=== PATIENT | female | born 1975 | race Caucasian/White ===

== ENCOUNTER 2016-10-24 17:39 | Emergency (ER) | payer SELFPAY ==
[~2016-10-24] VITALS: Ht 162.6 cm; Wt 91.2 kg
[2016-10-24 17:43] VITALS: Ht 162.6 cm; Wt 91.2 kg
--- NOTE | 2016-10-24 19:01 | EMERGENCY ROOM VISIT NOTE ---
History First contact with patient: 18:46 Chief Complaint: LEG PAIN,LEG INJURY Stated Complaint: R LEG SWOLLEN AND NUMB, BACK AND HIP HURT History of Present Illness The patient is a 40 year old female who presents to the Emergency Room with complaints of knee, hip, and back pain as well as leg numbness and swelling. 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 Two days ago, she got up from the seated position and noticed she felt weak and dizzy. She reports she got up and felt her right knee give way, and since then her back, hip, and knee have been hurting intermittently. She reports she also noticed both her legs were more swollen than usual and had an odd numb sensation to the upper thigh. Nothing made her pain better or worse. She denies a rash. She has a history of lumbar back surgery so was concerned something could have gone wrong with it. Review of Systems See HPI for pertinent positives & negatives. A total of 10 systems reviewed and were otherwise negative. Past Medical/Surgical History Medical Problems: (1) Bronchitis Surgical Problems: (1) History of back surgery Family History Diabetes mellitus FH: cancer Kidney disease Kidney stones Social History Smoking Status: Current Every Day Smoker Alcohol Use: occasionally Drug Use: none Housing Status: lives with family Occupation Status: employed Current/Historical Medications Scheduled PRN Xorwbaz-Vgsjfvqnaycnc-Otfitgyz (Excedrin Migraine), 2 TABS PO Q12 PRN for Migraine Allergies Coded Allergies: Nickel (Verified Allergy, Unknown, RASH, 03/21/16) Physical Exam Vital Signs Date Time Temp Pulse Resp B/P Pulse Ox O2 Delivery O2 Flow Rate FiO2 10/24/16 20:21 37.2 78 18 144/87 97 10/24/16 20:00 78 18 144/87 97 Room Air 10/24/16 17:43 37.2 75 18 146/88 98 Room Air Physical Exam GENERAL: Awake, alert, well-appearing, in no acute distress HENT: Normocephalic, atraumatic. Oropharynx unremarkable. EYES: Normal conjunctiva. Sclera non-icteric. NECK: Supple. No nuchal rigidity. FROM. No JVD. RESPIRATORY: Clear to auscultation. CARDIAC: Regular rate, normal rhythm. Extremities warm and well perfused. Pulses equal. ABDOMEN: Soft, non-distended. No tenderness to palpation. No rebound or guarding. No masses. RECTAL: Deferred. MUSCULOSKELETAL: Chest examination reveals no tenderness. There is no CVA tenderness to palpation. No joint edema. Tenderness to palpation of L5. Tenderness to R hip with deep palpation. Normal ROM of knee and hip. Crepitus to knees bilaterally. LOWER EXTREMITIES: Calves are equal size bilaterally and non-tender. Bilateral + 1 edema. No discoloration. NEURO: Normal sensorium. No sensory or motor deficits noted. SKIN: No rash or jaundice noted. Medical Decision & Procedures Procedure RIGHT PELVIS/UNILATERAL HIP 2-3VIEWS CLINICAL HISTORY: Right leg and hip pain. COMPARISON: None FINDINGS: The sacroiliac joints and symphysis pubis are intact. No acute fracture is identified within the pelvis or the hips. A density projecting over the left femoral neck is of doubtful significance. Hip joint spaces are preserved. There is no evidence for a vascular necrosis. There is minimal osteophytosis of the right hip. IMPRESSION: 1. No acute fracture within the pelvis or hips. 2. Preserved right hip joint space with minimal osteophytosis. Electronically signed by: Yosef Barber M.D. 10/24/2016 7:37 PM RIGHT KNEE 1 OR 2 VIEWS ROUTINE CLINICAL HISTORY: Right knee pain, swelling and clicking. COMPARISON: None FINDINGS: Positioning on lateral view is suboptimal. Alignment of the right knee is anatomic. There is no acute fracture or joint effusion. Joint spaces are preserved. IMPRESSION: No acute fracture or joint effusion of the right knee. RIGHT LOWER EXTREMITY VENOUS DOPPLER CLINICAL HISTORY: Right leg swelling and numbness. COMPARISON STUDY: No previous studies for comparison. TECHNIQUE: Sonography of the deep venous system of the right lower extremity was performed. Compression and augmentation were evaluated. FINDINGS: The right common femoral, superficial femoral and popliteal veins were compressible. Augmentation was normal. Flow was shown within the deep calf vessels. IMPRESSION: No evidence of deep venous thrombus within the right lower extremity. L-SPINE MIN 4 VIEWS ROUTINE CLINICAL HISTORY: Right leg pain and numbness. Previous back surgery. COMPARISON: Lumbar spine radiographs April 09, 2016. FINDINGS: Note is made of an L1-L2 laminectomy. Alignment of the lumbar spine is anatomic. Vertebral body heights are maintained. No fracture or suspicious lesion is present. There is mild endplate osteophytosis with minimal disc space narrowing. There is moderate facet arthrosis. IMPRESSION: 1. No acute lumbar spine fracture or subluxation. 2. L1-L2 laminectomy. 3. Mild multilevel degenerative disc disease and facet arthrosis. ED Course 6:40: I evaluated the patient in room C3. A complete history and physical were performed. 6:53: I ordered a Doppler US of the R leg and Xrays of the knee hip and Lumbar spine. 8:21: Her scans were negative. The patient was discharged home and advised to follow up with her PCP. Medical Decision 40 yo F with previous lumbar surgery who presents with back, hip, and knee pain. Differential includes arthritis, radiculopathy, DVT, fracture, or patellofemoral pain syndrome. She had an US to rule out DVT and Xrays of the knee, hip, and lumbar spine to rule out a bony pathology. These were all normal. Her pain was likely due to degenerative disease with a component of patellofemoral pain. She was discharged home in good condition and advised to follow up with her PCP. Departure Information Dispostion Home / Self-Care Condition GOOD Referrals No Doctor, Assigned (PCP) Patient Instructions My [facility] Resident Tracking Resident Involvement: Resident Care Provided Care Provided: Adult ED
--- NOTE | 2016-10-24 19:36 | DIAGNOSTIC IMAGING REPORT ---
RIGHT KNEE 1 OR 2 VIEWS ROUTINE CLINICAL HISTORY: Right knee pain, swelling and clicking. COMPARISON: None FINDINGS: Positioning on lateral view is suboptimal. Alignment of the right knee is anatomic. There is no acute fracture or joint effusion. Joint spaces are preserved. IMPRESSION: No acute fracture or joint effusion of the right knee. Electronically signed by: Yosef Barber M.D. 10/24/2016 7:34 PM Dictated Date/Time: 10/24/2016 7:33 PM
--- NOTE | 2016-10-24 19:37 | DIAGNOSTIC IMAGING REPORT ---
L-SPINE MIN 4 VIEWS ROUTINE CLINICAL HISTORY: Right leg pain and numbness. Previous back surgery. COMPARISON: Lumbar spine radiographs April 09, 2016. FINDINGS: Note is made of an L1-L2 laminectomy. Alignment of the lumbar spine is anatomic. Vertebral body heights are maintained. No fracture or suspicious lesion is present. There is mild endplate osteophytosis with minimal disc space narrowing. There is moderate facet arthrosis. IMPRESSION: 1. No acute lumbar spine fracture or subluxation. 2. L1-L2 laminectomy. 3. Mild multilevel degenerative disc disease and facet arthrosis. Electronically signed by: Yosef Barber M.D. 10/24/2016 7:35 PM Dictated Date/Time: 10/24/2016 7:34 PM
--- NOTE | 2016-10-24 19:38 | DIAGNOSTIC IMAGING REPORT ---
RIGHT PELVIS/UNILATERAL HIP 2-3VIEWS CLINICAL HISTORY: Right leg and hip pain. COMPARISON: None FINDINGS: The sacroiliac joints and symphysis pubis are intact. No acute fracture is identified within the pelvis or the hips. A density projecting over the left femoral neck is of doubtful significance. Hip joint spaces are preserved. There is no evidence for a vascular necrosis. There is minimal osteophytosis of the right hip. IMPRESSION: 1. No acute fracture within the pelvis or hips. 2. Preserved right hip joint space with minimal osteophytosis. Electronically signed by: Yosef Barber M.D. 10/24/2016 7:37 PM Dictated Date/Time: 10/24/2016 7:35 PM
--- NOTE | 2016-10-24 19:43 | DIAGNOSTIC IMAGING REPORT ---
RIGHT LOWER EXTREMITY VENOUS DOPPLER CLINICAL HISTORY: Right leg swelling and numbness. COMPARISON STUDY: No previous studies for comparison. TECHNIQUE: Sonography of the deep venous system of the right lower extremity was performed. Compression and augmentation were evaluated. FINDINGS: The right common femoral, superficial femoral and popliteal veins were compressible. Augmentation was normal. Flow was shown within the deep calf vessels. IMPRESSION: No evidence of deep venous thrombus within the right lower extremity. Electronically signed by: Yosef Barber M.D. 10/24/2016 7:42 PM Dictated Date/Time: 10/24/2016 7:42 PM
[2016-10-24 20:21] VITALS: BP 144/87; PULSE 78; TEMP 37.2; O2SAT 97
--- NOTE | 2016-10-24 22:47 | EMERGENCY ROOM VISIT NOTE ---
History Report prepared by Donna: Francis Baca Under the Supervision of: Dr. Salvatore Bhatia D.O. First contact with patient: 18:46 Chief Complaint: LEG PAIN,LEG INJURY Stated Complaint: R LEG SWOLLEN AND NUMB, BACK AND HIP HURT History of Present Illness The patient is a 40 year old female who presents to the Emergency Room with complaints of persistent right leg pain for the past two days. The patient notes that the pain is localized to her right knee and hip.The patient also notes numbness of the leg and increased lower right leg swelling. Her discomfort is rated 5/10 in severity. She also has some pain to the right lower back. The pain started suddenly after standing up from a seated position two days ago. The patient has a history of lumbar surgery. She is a smoker. She is not on control or hormone therapy. The patient drives two [address] ways to [employer] for work almost every day. Source of History: patient Onset: two days ago Position: leg (right) Symptom Intensity: 5/10 Timing: other (persisent) Associated Symptoms: + numbness Review of Systems See HPI for pertinent positives & negatives. A total of 10 systems reviewed and were otherwise negative. Past Medical & Surgical Medical Problems: (1) Bronchitis Surgical Problems: (1) History of back surgery Family History Diabetes mellitus FH: cancer Kidney disease Kidney stones Social History Smoking Status: Current Every Day Smoker Alcohol Use: occasionally Drug Use: none Housing Status: lives with family Occupation Status: employed Current/Historical Medications Scheduled PRN Dzgmrla-Gwfxmdzdcbjhj-Tbpbsubn (Excedrin Migraine), 2 TABS PO Q12 PRN for Migraine Allergies Coded Allergies: Nickel (Verified Allergy, Unknown, RASH, 03/21/16) Physical Exam Vital Signs Date Time Temp Pulse Resp B/P Pulse Ox O2 Delivery O2 Flow Rate FiO2 10/24/16 20:21 37.2 78 18 144/87 97 10/24/16 20:00 78 18 144/87 97 Room Air 10/24/16 17:43 37.2 75 18 146/88 98 Room Air Physical Exam CONSTITUTIONAL/VITAL SIGNS: Reviewed / noted above. GENERAL: Non-toxic in appearance. INTEGUMENTARY: Warm, dry, and [place]. HEAD: Normocephalic. EYES: without scleral icterus or trauma. ENT/OROPHARYNX: clear and moist. LYMPHADENOPATHY/NECK: Is supple without lymphadenopathy or meningismus. RESPIRATORY: Lungs clear and equal. CARDIOVASCULAR: Regular rate and rhythm. GI/ABDOMEN: Soft and nontender. No organomegaly or pulsatile mass. No rebound or guarding. Normal bowel sounds. EXTREMITIES: Warm and well perfused. BACK: No CVA tenderness. NEUROLOGICAL: Intact without focal deficits. PSYCHIATRIC: normal affect. MUSCULOSKELETAL: Normally developed with good muscle tone. Medical Decision & Procedures ER Provider Diagnostic Interpretation: X ray results and stated below per my interpretation and radiologist interpretation. Other radiology results and stated below per my review and radiologist interpretation: RIGHT PELVIS/UNILATERAL HIP 2-3VIEWS CLINICAL HISTORY: Right leg and hip pain. COMPARISON: None FINDINGS: The sacroiliac joints and symphysis pubis are intact. No acute fracture is identified within the pelvis or the hips. A density projecting over the left femoral neck is of doubtful significance. Hip joint spaces are preserved. There is no evidence for a vascular necrosis. There is minimal osteophytosis of the right hip. IMPRESSION: 1. No acute fracture within the pelvis or hips. 2. Preserved right hip joint space with minimal osteophytosis. Electronically signed by: Yosef Barber M.D. 10/24/2016 7:37 PM Dictated Date/Time: 10/24/2016 7:35 PM RIGHT KNEE 1 OR 2 VIEWS ROUTINE CLINICAL HISTORY: Right knee pain, swelling and clicking. COMPARISON: None FINDINGS: Positioning on lateral view is suboptimal. Alignment of the right knee is anatomic. There is no acute fracture or joint effusion. Joint spaces are preserved. IMPRESSION: No acute fracture or joint effusion of the right knee. Electronically signed by: Yosef Barber M.D. 10/24/2016 7:34 PM Dictated Date/Time: 10/24/2016 7:33 PM RIGHT LOWER EXTREMITY VENOUS DOPPLER CLINICAL HISTORY: Right leg swelling and numbness. COMPARISON STUDY: No previous studies for comparison. TECHNIQUE: Sonography of the deep venous system of the right lower extremity was performed. Compression and augmentation were evaluated. FINDINGS: The right common femoral, superficial femoral and popliteal veins were compressible. Augmentation was normal. Flow was shown within the deep calf vessels. IMPRESSION: No evidence of deep venous thrombus within the right lower extremity. Electronically signed by: Yosef Barber M.D. 10/24/2016 7:42 PM Dictated Date/Time: 10/24/2016 7:42 PM L-SPINE MIN 4 VIEWS ROUTINE CLINICAL HISTORY: Right leg pain and numbness. Previous back surgery. COMPARISON: Lumbar spine radiographs April 09, 2016. FINDINGS: Note is made of an L1-L2 laminectomy. Alignment of the lumbar spine is anatomic. Vertebral body heights are maintained. No fracture or suspicious lesion is present. There is mild endplate osteophytosis with minimal disc space narrowing. There is moderate facet arthrosis. IMPRESSION: 1. No acute lumbar spine fracture or subluxation. 2. L1-L2 laminectomy. 3. Mild multilevel degenerative disc disease and facet arthrosis. Electronically signed by: Yosef Barber M.D. 10/24/2016 7:35 PM Dictated Date/Time: 10/24/2016 7:34 PM ED Course 1845: The patient was evaluated by my resident. 1955: Previous medical records were reviewed. The patient was evaluated in room C3. A complete history and physical examination was performed. I explained the findings to her. 2014: The patient is ready for discharge. Medical Decision Differential diagnosis: Etiologies such as DVT, musculoskeletal, infection, joint effusion, trauma, lymphedema, idiopathic, CHF, as well as others were entertained.. This is a patient who presents with the above complaint. She primarily complains of pain in the right leg and hip area. She states that started when she bent over and got back up a couple of days ago. Further details listed above and in the resident's note. Vital signs are normal. Her physical exam did not reveal any abnormalities. She has no discomfort with palpation the leg. X-ray of the right hip, right knee and lumbar spine did not show any acute abnormality. Ultrasound of the leg did not show DVT. The patient was told results the test. She is felt to be stable for discharge and outpatient follow-up. Impression Primary Impression: Leg pain, right Scribe Attestation The scribe's documentation has been prepared under my direction and personally reviewed by me in its entirety. I confirm that the note above accurately reflects all work, treatment, procedures, and medical decision making performed by me. Departure Information Dispostion Home / Self-Care Referrals No Doctor, Assigned (PCP) Forms HOME CARE DOCUMENTATION FORM, IMPORTANT VISIT INFORMATION Patient Instructions My [facility] Additional Instructions Follow up with your PCP regarding the pain. A deep vein thrombosis was ruled out. If you notice worsening pain or swelling, please take Ibuprofen 600mg as needed with food. If you notice any shortness of breath or chest pain please return to the ED.
== END 2016-10-24 20:21 | disposition home or self-care (01) ==
LOC: MERGE 17:41 → C.EDB 17:41 → C.EDC 20:21
DX: M79.604 Pain in right leg (principal); F17.200 Nicotine dependence, unspecified, uncomplicated; Z98.890 Other specified postprocedural states; Z91.09 Other allergy status, other than to drugs and biological substances; Z83.3 Family history of diabetes mellitus; Z80.9 Family history of malignant neoplasm, unspecified; Z84.1 Family history of disorders of kidney and ureter

== ENCOUNTER 2016-11-18 18:09 | Emergency (ER) | payer SELFPAY ==
[~2016-11-18] VITALS: Ht 162.6 cm; Wt 91.0 kg
[2016-11-18 18:19] VITALS: TEMP 37; Ht 162.6 cm; Wt 91.0 kg
[2016-11-18] MEDS ORDERED: OXYCODONE HCL IR 5 MG TAB (IMMEDIATE RELEASE) PO STA (19:05)
[2016-11-18] MEDS ORDERED: ASPI-390 PO (19:44)
--- NOTE | 2016-11-18 20:24 | DIAGNOSTIC IMAGING REPORT ---
MRI OF THE LUMBAR SPINE WITHOUT CONTRAST CLINICAL HISTORY: Low back pain. Right leg numbness. History of ependymoma resection. COMPARISON STUDY: MRI of the lumbar spine November 11, 2008 and lumbar spine radiographs October 24, 2016. TECHNIQUE: Utilizing a 1.5 Zakia magnet and dedicated coil, multiplanar, multiecho imaging of the lumbar spine was performed without IV contrast. FINDINGS: For purposes of numbering on this exam, the L5-S1 disc space is assigned to axial image 23 of 26. Alignment of the lumbar spine is anatomic. Vertebral body heights are maintained. There is no marrow replacement. There is a Schmorl's node along the superior endplate of L4. There are findings consistent with L1-L2 laminectomies. No intracanalicular masses identified on this unenhanced exam. The conus terminates at the mid L1 level. Paravertebral soft tissues are unremarkable. L1-2: The central canal and neural foramen are patent. L2-3: There is mild disc bulge. The central canal and neural foramen are patent. L3-4: The central canal and neural foramen are patent. L4-5: The central canal and neural foramen are patent. L5-S1: The central canal and neural foramen are patent. IMPRESSION: 1. Mild multilevel degenerative disc disease and facet arthrosis of the lumbar spine. Mild disc bulges with no significant central canal or neural foraminal stenosis. 2. Stable postoperative findings following L1-L2 laminectomies. No residual intracanalicular mass on unenhanced exam. Electronically signed by: Yosef Barber M.D. 11/18/2016 8:22 PM Dictated Date/Time: 11/18/2016 8:12 PM
[2016-11-18] MEDS ORDERED: PRED20TA PO (20:40)
[2016-11-18] MEDS ORDERED: OXYC1TAB3 PO (20:40)
--- NOTE | 2016-11-18 20:41 | EMERGENCY ROOM VISIT NOTE ---
History First contact with patient: 18:35 Chief Complaint: PAIN (GENERALIZED) Stated Complaint: PAIN IN BACK, NECK AND LEGS History of Present Illness The patient is a 41 year old female who presents to the Emergency Room with complaints of pain in the low back with radiation down the right leg. The patient reports that she was seen here this month for similar pain. She reports the pain is in the right lower back with radiation into the right leg. She reports the pain in the leg makes it very difficult to walk. She does report some numbness in the anterior thigh of the right leg. The patient had x- rays when she was seen here previously and told to follow-up with her primary care provider she did [facility] and does have an appointment with them this week. Reports she has been taking ibuprofen at home with little relief of her pain. The patient does note that she had a surgery performed in 2007 to remove a mass from her spine. She states that her symptoms now feels similar to the symptoms she experienced prior to this diagnosis. She denies any weakness of the legs. She denies any incontinence, urinary symptoms or urinary retention. She denies any abdominal pain, nausea, vomiting or fevers. Review of Systems A complete 10-point Review of Systems was discussed with the patient, with pertinent positives and negatives listed in the History of Present Illness. All remaining Review of Systems questions can be considered negative unless otherwise specified. Past Medical/Surgical History Medical Problems: (1) Bronchitis Surgical Problems: (1) History of back surgery Family History Diabetes mellitus FH: cancer Kidney disease Kidney stones Social History Smoking Status: Current Every Day Smoker Alcohol Use: occasionally Drug Use: none Housing Status: lives with family Occupation Status: employed Current/Historical Medications Scheduled Prednisone (Prednisone), 0 PO DAILY Scheduled PRN Kpnzsod-Mxwfgqbdvabqi-Nctndbga (Excedrin Migraine), 2 TABS PO Q12 PRN for Migraine Oxycodone Ir (Roxicodone Ir), 1-2 TAB PO Q4H PRN for Pain Allergies Coded Allergies: Nickel (Verified Allergy, Unknown, RASH, 03/21/16) Physical Exam Vital Signs Date Time Temp Pulse Resp B/P Pulse Ox O2 Delivery O2 Flow Rate FiO2 11/18/16 20:49 60 18 103/76 95 Room Air 11/18/16 20:18 67 20 127/81 94 Room Air 11/18/16 18:19 37.0 67 16 120/82 97 Room Air Physical Exam VITALS: Vitals are noted on the nurse's note and reviewed by myself. No abnormalities noted. GENERAL: This is a 41-year-old female, in no acute distress, nondiaphoretic, well-developed well-nourished. SKIN: The skin was without rashes, erythema, edema, or bruising. HEAD: Normocephalic atraumatic. EYES: Pupils equal round and reactive to light and accommodation. The Extraocular movements intact. NECK: Supple without nuchal rigidity. No cervical spine tenderness. No paraspinous muscle tenderness. No lymphadenopathy. HEART: Regular rate and rhythm without murmurs gallops or rubs. LUNGS: Clear to auscultation bilaterally without wheezes, rales or rhonchi. ABDOMEN: Positive bowel sounds x 4. Soft, nontender, without masses or organomegaly. MUSCULOSKELETAL: No muscle atrophy, erythema, or edema noted of the back. There is no tenderness over the lumbar spinous processes. There is tenderness over the right lumbar paraspinous muscles. No palpable muscle spasms. Full range of motion of the spine. Negative straight leg raise test. NEURO: Patient was alert and oriented to person place and time. Normal sensation to light and sharp touch. Deep tendon reflexes 2+ in the lower extremities. Dorsalis pedis pulse 2+ bilaterally. Heel and toe walking is normal. Medical Decision & Procedures ER Provider Diagnostic Interpretation: MRI OF THE LUMBAR SPINE WITHOUT CONTRAST CLINICAL HISTORY: Low back pain. Right leg numbness. History of ependymoma resection. COMPARISON STUDY: MRI of the lumbar spine November 11, 2008 and lumbar spine radiographs October 24, 2016. TECHNIQUE: Utilizing a 1.5 Zakia magnet and dedicated coil, multiplanar, multiecho imaging of the lumbar spine was performed without IV contrast. FINDINGS: For purposes of numbering on this exam, the L5-S1 disc space is assigned to axial image 23 of 26. Alignment of the lumbar spine is anatomic. Vertebral body heights are maintained. There is no marrow replacement. There is a Schmorl's node along the superior endplate of L4. There are findings consistent with L1-L2 laminectomies. No intracanalicular masses identified on this unenhanced exam. The conus terminates at the mid L1 level. Paravertebral soft tissues are unremarkable. L1-2: The central canal and neural foramen are patent. L2-3: There is mild disc bulge. The central canal and neural foramen are patent. L3-4: The central canal and neural foramen are patent. L4-5: The central canal and neural foramen are patent. L5-S1: The central canal and neural foramen are patent. IMPRESSION: 1. Mild multilevel degenerative disc disease and facet arthrosis of the lumbar spine. Mild disc bulges with no significant central canal or neural foraminal stenosis. 2. Stable postoperative findings following L1-L2 laminectomies. No residual intracanalicular mass on unenhanced exam. Medications Administered Medications (Trade) Dose Ordered Sig/Selina Route Start Time Stop Time Status Last Admin Dose Admin Oxycodone HCl (Roxicodone Immediate Rel Tab) 5 mg NOW STAT PO 11/18/16 19:05 11/18/16 19:07 DC 11/18/16 19:13 5 MG Medical Decision Differential diagnosis includes musculoskeletal pain, discitis, epidural abscess , cauda equina syndrome, cord compression, herniated disc, malignancy, among others. The patient was evaluated as above. As the patient does have a complicated history and given her new complaint of right-sided numbness, I did choose to order an MRI of the lumbar spine. MRI was obtained and read by radiology with mild degenerative disc disease, but no central canal narrowing and no masses. The patient was given 5 mg OxyIR for pain. She did report some relief of the pain with this treatment. I will place the patient on a steroid taper. She was instructed to keep her follow-up appointment with her primary care provider this week. She will return for any new/concerning symptoms. She verbalized understanding of my assessment and treatment plan and was discharged home in good condition. The patient's case was reviewed with Dr. Gonzalez, ED attending physician, who agreed with my assessment and treatment plan. Impression Primary Impression: Lumbar radiculopathy Departure Information Dispostion Home / Self-Care Condition GOOD Prescriptions Oxycodone Ir (Roxicodone Ir) 5 Mg Tab 1-2 TAB PO Q4H Y for Pain, #15 TAB For Initial Treatment Prov: Margarita Stubbs PA-C 11/18/16 Prednisone (Prednisone) 20 Mg Tab 0 PO DAILY, #18 TAB 3 DAILY FOR 3 DAYS, THEN 2 DAILY FOR 3 DAYS, THEN 1 DAILY FOR 3 DAYS. Prov: Margarita Stubbs PA-C 11/18/16 [facility]errals [facility] Patient Instructions My [facility] Additional Instructions You have been treated in the Emergency Department for Back Pain. You have received pain medicine in the emergency department which impairs your ability to operate a vehicle. It is illegal for you to drive after receiving these medicines. You have been prescribed OxyIR to be used for pain control. This is a narcotic medication. You cannot drive or consume alcohol while on this medicine. This medicine should only be used for pain that cannot be controlled with over-the- counter pain medicines. Prednisone as prescribed. For pain control, you can use the following rbqv-sgg-euuihut medicines (if >12 yo): - Regular strength (325mg/tab) Tylenol (acetaminophen) 2 tabs every 4-6 hours as needed. Do not exceed 12 tablets in a 24 hour period. Avoid taking more than 4 grams (4000 mg) of Tylenol per day. This includes any other sources of acetaminophen you may take on a regular basis. - Regular strength (200 mg/tab) Advil (ibuprofen) 1-2 tabs every 4-6 hours as needed. Do not exceed a dose of 3200 mg per day. If this is an acute injury, ice can be applied to the area of pain for the first 3 days to help decrease pain and inflammation. After the first 3 days, a heating pad can be used over the area for continued soothing relief. Follow-up with your primary care provider as scheduled. Return to the Emergency Department if your current symptoms worsen despite treatment course outlined above, or if you develop any of the following symptoms : intractable pain despite aforementioned treatment course, loss of control of your bowel or bladder, numbness or tingling in your groin, or development of a fever.
[2016-11-18 20:49] VITALS: BP 103/76; PULSE 60; O2SAT 95
== END 2016-11-18 20:54 | disposition home or self-care (01) ==
LOC: MERGE 18:10 → C.EDB 18:10 → C.EDA 20:54
DX: M54.16 Radiculopathy, lumbar region (principal); F17.200 Nicotine dependence, unspecified, uncomplicated; Z98.890 Other specified postprocedural states; Z91.09 Other allergy status, other than to drugs and biological substances; Z83.3 Family history of diabetes mellitus; Z80.9 Family history of malignant neoplasm, unspecified; Z84.1 Family history of disorders of kidney and ureter

== ENCOUNTER 2017-02-01 19:17 | Emergency (ER) | payer SELFPAY ==
[~2017-02-01] VITALS: Ht 162.6 cm; Wt 91.6 kg
[~2017-02-01 19:17] MED LIST: OXYC1TAB3 PO; PRED20TA PO
[2017-02-01 19:23] VITALS: BP 167/98; PULSE 63; TEMP 36.7; O2SAT 98; Ht 162.6 cm; Wt 91.6 kg
--- NOTE | 2017-02-01 20:25 | DIAGNOSTIC IMAGING REPORT ---
RIGHT ANKLE MIN 3 VIEWS ROUTINE CLINICAL HISTORY: Right ankle pain status post trauma COMPARISON: None. DISCUSSION: No fractures or dislocations are visualized. The ankle mortise appears intact on these nonstress views. There is calcaneal spurring. IMPRESSION: No fractures or dislocations identified. Electronically signed by: Reggie Funk M.D. 02/01/2017 8:23 PM Dictated Date/Time: 02/01/2017 8:22 PM
--- NOTE | 2017-02-01 20:25 | DIAGNOSTIC IMAGING REPORT ---
RIGHT FOOT MIN 3 VIEWS ROUTINE CLINICAL HISTORY: Right foot pain status post trauma COMPARISON: None. DISCUSSION: No fractures or dislocations are visualized. There is calcaneal spurring. IMPRESSION: No fractures identified. Electronically signed by: Reggie Funk M.D. 02/01/2017 8:24 PM Dictated Date/Time: 02/01/2017 8:23 PM
--- NOTE | 2017-02-01 20:52 | EMERGENCY ROOM VISIT NOTE ---
ED Visit Note First contact with patient: 19:31 CHIEF COMPLAINT: Foot pain HISTORY OF PRESENT ILLNESS: This 41-year-old female patient presents to the emergency department complaining of swelling and pain in the right states she tripped while going down 2 steps, twisted her foot and fell on the ground. There is minimal pain in the foot at rest and worse with weight bearing. The patient also complains of a sore throat and coughing up phlegm since yesterday, states she was exposed to a coworker who was also sick recently. Patient states , "I caught off work and I need a note any way, so I figured I just get everything checked out while I was here." The patient rates the foot pain as throbbing and 5/10. She rates the throat pain as burning and 5/10. The patient has had some relief of the pain after taking Motrin. The patient is able to walk. No numbness or weakness. No ankle pain. There are no lacerations of the foot. The patient is able to move all of their toes and their ankle without pain. Patient states multiple previous ankle sprains but denies previous fracture to this foot. The sore throat has come on gradually. No fever or chills. No rash. Denies any posterior neck pain or stiffness. No difficulty breathing. Symptoms came on gradually. There has been no chest pain , no abdominal pain, no nausea or vomiting. REVIEW OF SYSTEMS: GENERAL: A 6 system review of systems was completed with positives and pertinent negatives in the HPI. ALLERGIES: See chart MEDICATIONS: See chart PMH: See chart SOCIAL HISTORY: See chart PHYSICAL EXAM: Vital Signs: Reviewed Nurse's notes, vital signs stable. GENERAL : Pleasant and cooperative, in no acute distress, but appears in pain, well- developed, well-nourished. MUSCULOSKELATAL: There is no visual deformity of the right foot. There is no erythema and no ecchymosis. There is no warmth. There is tenderness and swelling over the distal fourth and fifth metatarsal of the right foot. No proximal fifth metatarsal tenderness to palpation noted. There is no tenderness over the lateral or medial malleolus. No tenderness of the tib /fib. The range of motion of the right foot is not limited secondary to pain. There is no tenderness over the plantar fascia. The skin is intact and there are no lacerations or puncture wounds. Dorsalis pedis pulse 2+. Capillary refill less than 2 seconds. THROAT: The pharynx not inflamed and or swollen. No exudates are seen on the tonsils. The oropharyngeal airway is patent. Uvula is midline and no abscess is seen. SKIN: Clear and dry, no eruptions. No cyanosis, no petechiae. EMERGENCY DEPARTMENT COURSE: I examined the patient. Differential diagnosis includes foot contusion, sprain/strain, fracture, dislocation, ankle injury, viral pharyngitis, strep, URI. An X-ray of the right ankle and foot was reviewed by myself and radiologist and reveals no acute injury. Patient has no pain in the right ankle with range of motion or palpation. Only tender in the right foot. Rapid strep test was done, which is negative. Culture sent to lab. Patient was provided with crutches and instructed on their use. She was instructed to follow closely with her PCP or orthopedics. The patient was discharged home in good condition. Current/Historical Medications No Active Prescriptions or Reported Meds Allergies Coded Allergies: Nickel (Verified Allergy, Unknown, Unknown, 02/01/17) Vital Signs Date Time Temp Pulse Resp B/P (MAP) Pulse Ox O2 Delivery O2 Flow Rate FiO2 02/01/17 19:23 36.7 63 18 167/98 98 Room Air Departure Information Impression Primary Impression: Contusion of foot Additional Impression: Acute viral pharyngitis Dispostion Home / Self-Care Condition GOOD Prescriptions No Active Prescriptions or Reported Meds Referrals No Doctor, Assigned (PCP) Patient Instructions ED Contusion Foot, ED Pharyngitis Viral, [facility] Additional Instructions Ice and elevation for 24-48 hrs. Ibuprofen, 600mg and Tylenol 1000 mg every 6 hours for the pain. Avoid weight bearing and use crutches until the pain subsides and you can walk without a limp. Follow up with family doctor or orthopedic surgeon if symptoms persist in 5-7 days. The results of your rapid strep screen were found to be negative. You will be contacted in 48-72 hrs with the results of your pending strep culture. For pain and fever control, you can use the following avgd-mqh-alffbim medicines (if >12 yo): - Regular strength (325mg/tab) Tylenol (acetaminophen) 2 tabs every 4-6 hours as needed. Do not exceed 10 tablets in a 24 hour period. Avoid taking more than 3 grams (3000 mg) of Tylenol per day. This includes any other sources of acetaminophen you may take on a regular basis. - Regular strength (200 mg/tab) Advil (ibuprofen) 1-2 tabs every 4-6 hours as needed. Do not exceed a dose of 3200 mg per day. - For best results, alternate dosing of Tylenol and Advil. In addition to your prescribed medications, you can also use the following home remedies: - Warm salt-water gargles 3 times per day can soothe your throat and help to fight infection. - Warm tea with honey can soothe your throat. - Throat lozenges and sprays Return to the emergency department if your symptoms persist or worsen over the next 2-3 days despite treatment course outlined above. Return to the emergency department if you develop the following symptoms of: inability to swallow solids , liquids, or drool; excessive wheezing or inability to catch your breath; or intractable fever or pain. Follow up with your primary care provider in 2-3 days from today's emergency department visit. Work Instructions Return To Work: 2 days Lifting Limitations: none Problem Qualifiers Primary Impression: Contusion of foot Encounter type: initial encounter Laterality: right Qualified Codes: S90.31XA - Contusion of right foot, initial encounter
== END 2017-02-01 21:44 | disposition home or self-care (01) ==
LOC: C.EDB 19:19 → C.EDD 21:44
DX: S90.31XA Contusion of right foot, initial encounter (principal); J02.8 Acute pharyngitis due to other specified organisms; W10.9XXA Fall (on) (from) unspecified stairs and steps, initial encounter; X50.1XXA Overexertion from prolonged static or awkward postures, initial encounter

== ENCOUNTER 2017-06-13 16:37 | Emergency (ER) | payer SELFPAY ==
[2017-06-13 16:41] VITALS: TEMP 37.1; Ht 162.6 cm
[2017-06-13] MEDS ORDERED: HYDROCODONE/ACETAMOPHEN 5/325MG TAB PO ONE (17:15)
--- NOTE | 2017-06-13 17:25 | DIAGNOSTIC IMAGING REPORT ---
LEFT FOOT 3 VIEWS CLINICAL HISTORY: Left foot pain. Fall. FINDINGS: 3 views of left foot are obtained. No prior studies are available for comparison at the time of dictation. The skeletal structures are well mineralized. No fracture is seen. The joint spaces of the foot are maintained. Soft tissue swelling is suggested in the forefoot. There is a large plantar calcaneal enthesophyte. IMPRESSION: Soft tissue swelling is suggested in the forefoot. No fracture is identified. Electronically signed by: Demetri Amaro M.D. 06/13/2017 5:23 PM Dictated Date/Time: 06/13/2017 5:21 PM
[2017-06-13 17:53] VITALS: BP 140/91; PULSE 68; O2SAT 95
[2017-06-13] MEDS ORDERED: ASPI-390 PO (19:44)
--- NOTE | 2017-06-14 10:11 | EMERGENCY ROOM VISIT NOTE ---
ED Visit Note First contact with patient: 16:57 Chief Complaint: I hurt my left foot when I fell. History of Present Illness: Ms. Perez is a 41-year-old white female who is brought into the ED via wheelchair complaining of left mid foot pain. Patient reports approximately one hour ago she was trying to disentangle her dog from around the tree. She reports that she walked around the tree she walked into a hole and tripped and fell. She reports when she fell she felt and heard a snapping sensation in the left foot. She reports since that time she has been having moderate to severe midfoot pain on the left and she has not been able to ambulate because of her discomfort. Currently she complains of severe sharp and throbbing pain throughout the midfoot of the left foot. She rates her discomfort 10/10. Her pain is nonradiating. Her pain worsens with flexion and extension of the toes, palpation and weightbearing. She has not identified any alleviating factors related to the pain. She has not taken any medication for pain prior to arrival at the hospital. She denies striking her head or face at the time of the fall or having a loss of consciousness and since the fall she has not had any signs of head injury. Additionally she denies left hip pain, left knee pain, left lower leg pain, left ankle pain, left foot weakness/numbness/tingling. Additionally she denies any previous significant injuries or surgeries to the left foot. Review of Systems: As noted above in history of present illness. Past Medical History: Migraine headaches, bronchitis, pneumonia, unspecified skin disorder, status post tonsillectomy, unspecified back surgery and removal of cervical cancer. Current Medications: Excedrin Migraine. Allergies to Medications: Patient denies. Social History: Patient is currently employed; she feels safe in her home environment; she admits to tobacco and alcohol use. Physical Examination: Vital Signs: Date Time Temp Pulse Resp B/P (MAP) Pulse Ox O2 Delivery O2 Flow Rate FiO2 06/13/17 17:53 68 16 140/91 95 06/13/17 16:41 37.1 70 16 141/90 96 Room Air GENERAL: 41-year-old female in mild distress due to pain, nontoxic-appearing, afebrile and hemodynamically stable. NEUROLOGICAL: Awake, alert and oriented to person, place and time. Answering questions appropriately and following commands. Normal gait. Good hand eye coordination. No focal motor sensory deficits. SKIN: Warm, dry and pink. No soft tissue trauma noted. LEFT LOWER EXTREMITY: No gross bony deformity. No tenderness in the knee, lower leg or ankle. No tenderness over the gastrocnemius or heel. Patient did not want me to touch her foot because of her discomfort and places her pain over the intermediate and lateral cuneiform tarsal and the second, third and fourth metacarpal. There was mild swelling in this area. The toes were warm and pink and capillary refill was brisk. She was able to wiggle her toes. ED Course: Patient is assessed as noted above. Patient's medication list was reviewed. Patient was given ice and one [place] tablet eye mouth for pain. Left Foot X-Rays: Were read by myself and the radiologist showing no acute fractures or dislocations. Patient was placed in a postop shoe and on nonweightbearing crutches. Patient was educated about today's findings and instructed on her treatment plan ; she verbalizes understanding and agreement with this plan. Clinical Impression: Left foot pain. Disposition: Patient discharged home in stable condition; prior to departure she was reassessed and subjectively reported she was feeling better and rated her discomfort 8/10. Plan: Comfort measures were discussed with the patient including alternating ibuprofen and acetaminophen, ice, elevation, postop shoe and nonweightbearing crutches. Patient was encouraged to follow-up with orthopedics if no better in 7-10 days. Patient was encouraged return ED for worsening/uncontrolled pain, foot weakness/ numbness/tingling, uncontrolled swelling or any new/concerning symptoms.
== END 2017-06-13 17:55 | disposition home or self-care (01) ==
LOC: C.EDB 16:38 → C.EDD 17:55
DX: M79.672 Pain in left foot (principal); W18.42XA Slipping, tripping and stumbling without falling due to stepping into hole or opening, initial encounter; Y93.89 Activity, other specified; Z87.01 Personal history of pneumonia (recurrent); Z85.41 Personal history of malignant neoplasm of cervix uteri; Z72.0 Tobacco use

== ENCOUNTER 2017-06-19 12:50 | Emergency (ER) | payer SELFPAY ==
[~2017-06-19] VITALS: Ht 162.6 cm; Wt 86.0 kg
[~2017-06-19 12:50] MED LIST changes: +ASPI-390 PO; -OXYC1TAB3 PO; -PRED20TA PO
[2017-06-19 12:58] VITALS: TEMP 36.9; Ht 162.6 cm; Wt 86.0 kg
[2017-06-19] MEDS ORDERED: ACET-1311 PO (13:11)
[2017-06-19] MEDS ORDERED: IBUP-1050 PO (13:11)
[2017-06-19] MEDS ORDERED: HYDROCODONE/ACETAMOPHEN 5/325MG TAB PO ONE (13:45)
--- NOTE | 2017-06-19 14:38 | DIAGNOSTIC IMAGING REPORT ---
CT L LOWER EXTREMITY WITHOUT CT DOSE: 232.21 mGy.cm CLINICAL HISTORY: Left foot pain and swelling. Negative conventional radiograph. TECHNIQUE: Helical images were acquired in the transverse plane. Sagittal and coronal reformatted images were acquired. A dose lowering technique was utilized adhering to the principles of ALARA. COMPARISON STUDY: Conventional radiographic study dated 06/13/2017 FINDINGS: There is a mildly comminuted fracture involving the medial cuneiform. There is a nondisplaced chip fracture involving the base of the second metatarsal. There is a nondisplaced chip fracture involving the base of the third metatarsal. There is no subluxation. No phalangeal fractures are visualized. No calcaneal navicular talus are or cuboid fractures are visualized. IMPRESSION: 1. Mildly comminuted fracture involving the medial cuneiform 2. Nondisplaced fracture involving the base the second metatarsal 3. Nondisplaced fracture involving the base the third metatarsal 4. No subluxations identified. Electronically signed by: Reggie Funk M.D. 06/19/2017 2:36 PM Dictated Date/Time: 06/19/2017 2:28 PM
[2017-06-19] MEDS ORDERED: HYDR-5688 PO (14:47)
[2017-06-19 15:17] VITALS: BP 153/91; PULSE 60; O2SAT 96
--- NOTE | 2017-06-19 20:55 | EMERGENCY ROOM VISIT NOTE ---
ED Visit Note First contact with patient: 13:35 Chief Complaint: Still having left foot pain and swelling and now it's black and blue. History of Present Illness: Ms. Perez is a 41-year-old white female who ambulates into the ED complaining of left foot pain and swelling. Historically patient reports she injured her foot on March 03 and was seen in this emergency department and diagnosed with a contusion. I had seen this patient on June 13 and she still reported that she was having pain and swelling. Both of these visits she received x-rays which shows no acute fractures or dislocations. Patient presents today with worsening pain and worsening swelling in the foot and now with ecchymosis in her toes. Currently she is complaining of a throbbing and a sharp pain when she ambulates in the area of the second, third and fourth MTP joints on the left foot. She rates her discomfort 9/10. Her pain is nonradiating. Her pain worsens with palpation and ambulation. She has not identified any alleviating factors related to the pain. She reports she's been alternating ibuprofen and Tylenol without relief of her discomfort. Associated with her pain is swelling and now ecchymosis. She denies lower leg pain, ankle pain, other toe pain, foot weakness/numbness/ tingling, recent new direct or repetitive trauma. Review of Systems: As noted above in history of present illness. Past Medical History: As previously noted, unspecified skin problem, bronchitis , pneumonia, status post tonsillectomy, cervical collar, unspecified back surgery. Current Medications: Patient denies. Allergies to Medications: Patient denies. Social History: Patient is currently employed; she lives the daughter and feels safe in her home environment; she admits to tobacco and alcohol use. Physical Examination: Vital Signs: Date Time Temp Pulse Resp B/P (MAP) Pulse Ox O2 Delivery O2 Flow Rate FiO2 06/19/17 15:17 60 16 153/91 96 06/19/17 12:58 36.9 64 20 168/99 97 Room Air GENERAL: 41-year-old female in mild distress due to pain, nontoxic-appearing, afebrile and hemodynamically stable. NEUROLOGICAL: Awake, alert and oriented to person, place and time. Answering questions appropriately and following commands. SKIN: Warm, dry and pink. Left Foot: Ecchymosis presenting over the proximal phalanx of the third and fourth toes and in the webspace between the third and fourth toes. LEFT LOWER EXTREMITY: No gross bony deformity. No shortening or malrotation. No tenderness in the knee, lower leg or ankle. Moderate tenderness over the cuneiform tarsals, the second through third metatarsals and the second through third MCP joints. I do not appreciate any bony deformity or crepitus. She does have full range of motion of these joints. She doesn't bruising and ecchymosis as noted above. The toes are warm and pink and capillary refill is brisk. She is able to distinguish light sensations through all dermatomes of the foot. ED Course: Patient is assessed as noted above. Patient's medication list was reviewed. Patient was given one [place] tablet 5/325 mg by mouth for pain. Left Foot CT: Was reviewed by myself and read by the radiologist showing a mildly comminuted fracture involving the medial cuneiform tarsal and nondisplaced fractures involving the base of the second and third metatarsals. Patient was placed in an Ortho-Glass posterior ankle splint; patient had crutches from previous visit. Patient was educated about today's findings and instructed on her treatment plan ; she verbalizes understanding and agreement with this plan. Clinical Impression: Left foot fractures. Disposition: Patient discharged home in stable condition accompanied by her daughter; prior to departure she was reassessed and subjectively reported she was feeling much better. Plan: Comfort measures were discussed with the patient including rest, ice, splint and crutch use and a sliding pain medication scale of ibuprofen, acetaminophen and [place]. She was given appropriate narcotic precautions and her name was checked on the state database and no red flags were noted. Patient was encouraged to follow-up with her dairy specialist for definitive care and treatment. Patient is encouraged return ED for worsening/uncontrolled pain, worsening/ uncontrolled swelling, foot weakness/numbness/tingling or any new/concerning symptoms.
== END 2017-06-19 15:17 | disposition home or self-care (01) ==
LOC: C.EDB 12:50 → C.EDD 15:17
DX: S92.325A Nondisplaced fracture of second metatarsal bone, left foot, initial encounter for closed fracture (principal); S92.335A Nondisplaced fracture of third metatarsal bone, left foot, initial encounter for closed fracture; X58.XXXA Exposure to other specified factors, initial encounter; F17.200 Nicotine dependence, unspecified, uncomplicated; Z98.890 Other specified postprocedural states; Z87.2 Personal history of diseases of the skin and subcutaneous tissue

== ENCOUNTER 2017-11-14 20:20 | Emergency (ER) | payer OTHER ==
[~2017-11-14] VITALS: Ht 162.6 cm; Wt 84.0 kg
[~2017-11-14 20:20] MED LIST changes: +ACET-1311 PO; -ASPI-390 PO; +HYDR-5688 PO; +IBUP-1050 PO
[2017-11-14 20:23] VITALS: TEMP 36.5
[2017-11-14] MEDS ORDERED: SODIUM CHLORIDE 0.9% 1000ML 1,000 ML IV STA (21:31)
[2017-11-14] MEDS ORDERED: ONDANSETRON INJ 2 MG/ML 2 ML VIAL IV STA (21:31)
[2017-11-14] MEDS ORDERED: KETOROLAC TROMETHAMINE 30 MG/ML VIAL IV STA (21:31)
[2017-11-14 21:47] VITALS: O2SAT 99; Ht 162.6 cm; Wt 84.0 kg
[2017-11-14 22:11] LABS: BASO % 0.3 %; BASO ABS # 0.03 K/uL (0-0.2); EOS % 2.1 %; HEMATOCRIT 40.2 % (37-47); HEMOGLOBIN 13.4 g/dL (12.0-16.0); IG# 0.03 K/uL (0.00-0.02); LYMPH % 20.6 %; LYMPH ABS # 1.93 K/uL (1.2-3.4); MEAN CELL VOLUME 91.4 fL (80-100); MEAN CORPUSCULAR HEMOGLOBIN 30.5 pg (25-34); MEAN CORPUSCULAR HGB CONC 33.3 g/dl (32-36); MEAN PLATELET VOLUME 10.6 fL (7.4-10.4); MONO % 6.7 %; MONO ABS # 0.63 K/uL (0.11-0.59); NEUT ABS # 6.55 K/uL (1.4-6.5); PLATELET COUNT 289 K/uL (130-400); RED CELL DISTRIBUTION WIDTH CV 13.5 % (11.5-14.5); RED CELL DISTRIBUTION WIDTH SD 45.4 fL (36.4-46.3); WHITE BLOOD COUNT 9.37 K/uL (4.8-10.8)
[2017-11-14 22:42] LABS: ALBUMIN 3.2 gm/dl (3.4-5.0); ALT/SGPT 22 U/L (12-78); AST/SGOT 17 U/L (15-37); BLOOD UREA NITROGEN 15 mg/dl (7-18); CALCIUM 8.6 mg/dl (8.5-10.1); CARBON DIOXIDE 27 mmol/L (21-32); CREATININE 0.91 mg/dl (0.60-1.20); GLUCOSE 110 mg/dl (70-99); POTASSIUM 3.6 mmol/L (3.5-5.1); SODIUM 141 mmol/L (136-145)
[2017-11-14 22:51] LABS: ALKALINE PHOSPHATASE 66 U/L (45-117)
[2017-11-15 00:45] VITALS: BP 155/89; PULSE 69; O2SAT 96
--- NOTE | 2017-11-15 05:49 | EMERGENCY ROOM VISIT NOTE ---
History First contact with patient: 21:27 Chief Complaint: ABDOMINAL PAIN Stated Complaint: ABDOMINAL PAIN,FAINT, VOMITING Nursing Triage Summary: Pt reports 45 mins ago she started with sharp abdominal pain throughtout, nausea, vomiting. Pt states, "When I just walked in here I felt like I was going to pass out." History of Present Illness The patient is a 42 year old female who presents to the Emergency Room with complaints of upper abdominal pain for the past few hours described as aching, ranging in severity 6 out of 10. Nothing makes it better or worse. It does not radiate. Patient states she had fried chicken and fried rice for dinner. Symptoms started shortly after this. Patient denies chest pain, dyspnea, fever , chills, cough, congestion, back pain, flank pain, urinary symptoms. Patient states because the pain she felt lightheaded. No history of similar symptoms in the past. Review of Systems An 10 system review of systems was completed with positives and pertinent negatives listed in the HPI. Past Medical/Surgical History Medical Problems: (1) Bronchitis Surgical Problems: (1) History of back surgery Family History Diabetes mellitus FH: cancer Kidney disease Kidney stones Social History Smoking Status: Current Every Day Smoker Alcohol Use: occasionally Drug Use: none Housing Status: lives with family Occupation Status: employed Current/Historical Medications Scheduled Acetaminophen (Tylenol), 650 MG PO DIRECTED Ibuprofen (Advil), 600 MG PO DIRECTED Physical Exam Vital Signs Date Time Temp Pulse Resp B/P (MAP) Pulse Ox O2 Delivery O2 Flow Rate FiO2 11/15/17 00:45 69 14 155/89 96 11/14/17 23:44 52 15 143/91 97 Room Air 11/14/17 22:08 60 11/14/17 22:05 51 16 144/84 96 Room Air 57 168/92 59 141/100 11/14/17 21:47 99 Room Air 11/14/17 20:23 36.5 75 18 99 Room Air Physical Exam VITALS: Vitals are noted on the nurse's note and reviewed by myself. Vital signs hypertensive. GENERAL: Pleasant female, in no acute distress, nondiaphoretic, well-developed well-nourished. SKIN: The skin was without rashes, erythema, edema, or bruising. There is no tenting of the skin. Capillary reflex less than 2 seconds. HEAD: Normocephalic atraumatic. EARS: External auditory canals clear, tympanic membranes pearly isaac without erythema or effusion bilaterally. EYES: Pupils equal round and reactive to light and accommodation. Conjunctivae without injection, sclerae without icterus. Extraocular movements intact. NOSE: Patent, turbinates without inflammation or discharge. MOUTH: Mucous membranes moist. Pharynx without erythema or exudate. Uvula midline. Airway patent. Tongue does not deviate. NECK: Supple without nuchal rigidity. No lymphadenopathy. No thyromegaly. Cervical spine is nontender. No JVD. HEART: Regular rate and rhythm without murmurs gallops or rubs. LUNGS: Clear to auscultation bilaterally without wheezes, rales or rhonchi. No retractions or accessory muscle use. ABDOMEN: Positive bowel sounds x 4. Normal tympanic percussion. Soft, tender to palpation right upper quadrant, without masses or organomegaly. No guarding or rebound tenderness. No CVA tenderness MUSCULOSKELETAL: No muscle atrophy, erythema, or edema noted. NEURO: Patient was alert and oriented to person place and time. Normal sensation to light and sharp touch. No focal neurological deficits. Medical Decision & Procedures Laboratory Results 11/14/17 21:55 Red Blood Count 4.40, Mean Corpuscular Volume 91.4, Mean Corpuscular Hemoglobin 30.5, Mean Corpuscular Hemoglobin Concent 33.3, Mean Platelet Volume 10.6, Neutrophils (%) (Auto) 70.0, Lymphocytes (%) (Auto) 20.6, Monocytes (%) (Auto) 6.7, Eosinophils (%) (Auto) 2.1, Basophils (%) (Auto) 0.3, Neutrophils # (Auto) 6.55, Lymphocytes # (Auto) 1.93, Monocytes # (Auto) 0.63, Eosinophils # (Auto) 0.20, Basophils # (Auto) 0.03 11/14/17 21:55 Test 11/14/17 21:55 11/14/17 23:25 11/14/17 23:29 White Blood Count 9.37 K/uL (4.8-10.8) Red Blood Count 4.40 M/uL (4.2-5.4) Hemoglobin 13.4 g/dL (12.0-16.0) Hematocrit 40.2 % (37-47) Mean Corpuscular Volume 91.4 fL (80-100) Mean Corpuscular Hemoglobin 30.5 pg (25-34) Mean Corpuscular Hemoglobin Concent 33.3 g/dl (32-36) Platelet Count 289 K/uL (130-400) Mean Platelet Volume 10.6 fL (7.4-10.4) Neutrophils (%) (Auto) 70.0 % Lymphocytes (%) (Auto) 20.6 % Monocytes (%) (Auto) 6.7 % Eosinophils (%) (Auto) 2.1 % Basophils (%) (Auto) 0.3 % Neutrophils # (Auto) 6.55 K/uL (1.4-6.5) Lymphocytes # (Auto) 1.93 K/uL (1.2-3.4) Monocytes # (Auto) 0.63 K/uL (0.11-0.59) Eosinophils # (Auto) 0.20 K/uL (0-0.5) Basophils # (Auto) 0.03 K/uL (0-0.2) RDW Standard Deviation 45.4 fL (36.4-46.3) RDW Coefficient of Variation 13.5 % (11.5-14.5) Immature Granulocyte % (Auto) 0.3 % Immature Granulocyte # (Auto) 0.03 K/uL (0.00-0.02) Anion Gap 5.0 mmol/L (3-11) Est Creatinine Clear Calc Drug Dose 82.7 ml/min Estimated GFR () 88.9 Estimated GFR (Non- 76.7 BUN/Creatinine Ratio 16.9 (10-20) Calcium Level 8.6 mg/dl (8.5-10.1) Total Bilirubin 0.2 mg/dl (0.2-1) Direct Bilirubin < 0.1 mg/dl (0-0.2) Aspartate Amino Transf (AST/SGOT) 17 U/L (15-37) Alanine Aminotransferase (ALT/SGPT) 22 U/L (12-78) Alkaline Phosphatase 66 U/L (45-117) Total Protein 6.0 gm/dl (6.4-8.2) Albumin 3.2 gm/dl (3.4-5.0) Thyroid Stimulating Hormone (TSH) 1.600 uIu/ml (0.300-4.500) Human Chorionic Gonadotropin, Qual NEG (NEG) Urine Color YELLOW Urine Appearance CLEAR (CLEAR) Urine pH 7.0 (4.5-7.5) Urine Specific [place] 1.021 (1.000-1.030) Urine Protein NEG (NEG) Urine Glucose (UA) NEG (NEG) Urine Ketones TRACE (NEG) Urine Occult Blood NEG (NEG) Urine Nitrite NEG (NEG) Urine Bilirubin NEG (NEG) Urine Urobilinogen NEG (NEG) Urine Leukocyte Esterase SMALL (NEG) Urine WBC (Auto) 5-10 /hpf (0-5) Urine RBC (Auto) 0-4 /hpf (0-4) Urine Hyaline Casts (Auto) 0 /lpf (0-5) Urine Epithelial Cells (Auto) >30 /lpf (0-5) Urine Bacteria (Auto) 1+ (NEG) Urine Mucus PRESENT (NONE PRSENT) Urine Yeast (Auto) (NONE PRSENT) Troponin I < 0.015 ng/ml (0-0.045) Medications Administered Medications (Trade) Dose Ordered Sig/Selina Route Start Time Stop Time Status Last Admin Dose Admin Ondansetron HCl (Zofran Inj) 4 mg NOW STAT IV 11/14/17 21:31 11/14/17 21:32 DC 11/14/17 22:09 4 MG Sodium Chloride 1,000 ml @ 999 mls/hr Q1H1M STAT IV 11/14/17 21:31 11/14/17 22:31 DC 11/14/17 22:02 999 MLS/HR Ketorolac Tromethamine (Toradol Inj) 10 mg NOW STAT IV 11/14/17 21:31 11/14/17 21:32 DC 11/14/17 22:09 10 MG ED Course Prior records/ancillary studies reviewed. Triage Nursing notes reviewed. Additional history obtained from family The patient's history was concerning for abdominal pain. Differential diagnosis: Etiologies such as appendicitis, diverticulitis, PUD, biliary pathology, UTI, pancreatitis, obstruction, mesenteric ischemia, aortic pathology, infections, inflammatory bowel disease, renal colic, as well as others were entertained. Physical examination findings: As above. ER treatment provided: Toradol, Zofran On reassessment the patient felt better. Diagnostics interpreted by me: ECG: Normal sinus, normal intervals, no acute ST-T wave changes, rate 53. Impression sinus bradycardia interpreted by myself The labs revealed stable H&H. No leukocytosis Imaging studies: Ultrasound concerning for gallstone. No free fluid. Per radiology. Exam and history seem consistent with biliary colic. Patient's pain resolved. Patient did not have acute abdomen on exam. She was tolerating fluids. She felt much better. She requested to go. Patient was advised to low-fat diet to follow-up outpatient with surgery for further evaluation treatment for her gallbladder or here in the ER sooner for abdominal pain, fevers, vomiting, worsening signs or symptoms or as needed.By the evaluation outlined above emergent etiologies such as appendicitis, diverticulitis, PUD, UTI, pancreatitis , obstruction, mesenteric ischemia, aortic pathology, infections, inflammatory bowel disease, renal colic, as well as others were deemed relatively unlikely. The pt informed about the findings as listed above. All questions were answered and pleased with the treatment. Return instructions were outlined and the patient was discharged in stable condition. Case reviewed with my attending Referral: The patient was referred back to their primary care physician and surgery for follow-up in 2 to 3 days for a recheck of the current condition. The chart was completed utilizing [employer] Speech voice recognition software. Grammatical errors, random word insertions, pronoun errors, and incomplete sentences are an occassional consequence of this system due to software limitations, ambient noise, and hardware issues. Any formal questions or concerns about the content, text, or information contained within the body of this dictation should be directly addressed to the physician offset assistant press operator for clarification. Medical Decision As above Medication Reconcilliation Current Medication List: was personally reviewed by me Blood Pressure Screening Patient's blood pressure: Elevated blood pressure Blood pressure disposition: Elevated BP felt to be situational Impression Primary Impression: Biliary colic Departure Information Dispostion Home / Self-Care Condition GOOD Forms Call Back Authorization, HOME CARE DOCUMENTATION FORM, Work Instructions, Return To Work: 2 days IMPORTANT VISIT INFORMATION Patient Instructions My [facility], ED Gallstone W Biliary Colic Additional Instructions Avoid large meals. Avoid fatty and acidic foods. Rest and drink plenty of fluids as tolerated. Continue current medications. Avoid strenuous activities and anything that worsens your pain. Resume normal activities once your symptoms resolve. Return to the ER immediately for worsening or persistent abdominal pain, black or blood in your stools, vomiting, fevers, chest pains, difficulty breathing, worsening of your condition, or as needed. Follow up with your primary physician in 2-3 days for a recheck of your current condition and referral to general surgery for your gallbladder problem. Work Instructions Return To Work: 2 days
--- NOTE | 2017-11-15 07:12 | DIAGNOSTIC IMAGING REPORT ---
ABDOMINAL ULTRASOUND, RIGHT UPPER QUADRANT HISTORY: Right upper quadrant abdominal pain. Vomiting.. COMPARISON: None. FINDINGS: Pancreas: The pancreatic tail is obscured by overlying bowel gas. The remaining portions of the pancreas are within normal limits. Liver: Unremarkable. Gallbladder: A 2 cm gallstone. The gallbladder is slightly contracted. No gallbladder wall thickening. CBD: 5 mm. Right kidney: No hydronephrosis. IMPRESSION: Cholelithiasis. The gallbladder is contracted. No definite gallbladder wall thickening. Electronically signed by: Jerson Brandt M.D. 11/15/2017 7:11 AM Dictated Date/Time: 11/15/2017 7:10 AM
== END 2017-11-15 00:46 | disposition home or self-care (01) ==
LOC: C.EDB 20:22 → C.EDC 11-15 00:46
DX: K80.50 Calculus of bile duct without cholangitis or cholecystitis without obstruction (principal); R03.0 Elevated blood-pressure reading, without diagnosis of hypertension; F17.200 Nicotine dependence, unspecified, uncomplicated; Z83.3 Family history of diabetes mellitus; Z84.1 Family history of disorders of kidney and ureter

== ENCOUNTER 2017-11-28 11:35 | Day surgery (SDC) | payer OTHER ==
[2017-11-26 13:12] VITALS: BMI 32.0
[~2017-11-28] VITALS: Ht 162.6 cm; Wt 84.1 kg
[~2017-11-28 11:35] MED LIST changes: +CEFAZOLIN 2000MG IV PUSH 15 ML IV SCH; -HYDR-5688 PO; +LACTATED RINGER'S 1000ML 1,000 ML IV SCH
[2017-11-28] MEDS ORDERED: BUPIVACAINE/EPINEPHRINE 0.5% MPF 1:200,000 30 ML VIAL ONE (11:39)
[2017-11-28] MEDS ORDERED: DEXAMETHASONE SOD INJ 4 MG/ML VIAL ONE (11:54)
[2017-11-28] MEDS ORDERED: FENTANYL CITRATE INJ 50 MCG/1 ML 2 ML VIAL ONE ×2 (11:54→14:11)
[2017-11-28] MEDS ORDERED: PROPOFOL IV EMULSION 10 MG/ML 20 ML VIAL IV ONE (11:54)
[2017-11-28] MEDS ORDERED: MIDAZOLAM HCL 1 MG/ML 2ML VIAL ONE (11:54)
[2017-11-28] MEDS ORDERED: ONDANSETRON INJ 2 MG/ML 2 ML VIAL ONE (11:54)
[2017-11-28] MEDS ORDERED: NEOSTIGMINE METHYLSULFATE 5 MG/5 ML SYR ONE (11:54)
[2017-11-28] MEDS ORDERED: LIDOCAINE HCL 2% 2 ML VIAL (20MG/ML) ONE (11:54)
[2017-11-28] MEDS ORDERED: GLYCOPYRROLATE INJ 0.2 MG/ML VIAL ONE (11:54)
[2017-11-28 12:07] VITALS: BP 141/88; PULSE 62; TEMP 36.8; O2SAT 96; Ht 162.6 cm; Wt 84.1 kg
--- NOTE | 2017-11-28 12:49 | History & Physical Bridge Note ---
H&P Re-Evaluation Bridge Note: I have examined the patient, reviewed the History & Physical and in the interval since the performance of the History & Physical I have noted the following changes of clinical significance: No changes noted
[2017-11-28] MEDS ORDERED: ROCURONIUM BROMIDE 10 MG/ML 5 ML VIAL IV ONE (13:37)
[2017-11-28] MEDS ORDERED: KETOROLAC TROMETHAMINE 30 MG/ML VIAL ONE (13:37)
--- NOTE | 2017-11-28 13:45 | [facility] Post Operative Brief Note ---
Immediate Operative Summary Operative Date Nov 28, 2017. Pre-Operative Diagnosis Cholelithiasis Post-Operative Diagnosis Same Procedure(s) Performed Laparoscopic Cholecystectomy Surgeon Dr. Dean Cline Lining Stamper Surgeon(s) Dora Araiza PA-C Estimated Blood Loss 10mL Findings Consistent with Post-Op Diagnosis Specimens Permanent A. Gallbladder and contents Anesthesia Type General
--- NOTE | 2017-11-28 13:59 | [facility] Operative Report ---
Operative Report Operative Date Nov 28, 2017. Pre-Operative Diagnosis Cholelithiasis Post-Operative Diagnosis Same Procedure(s) Performed Laparoscopic Cholecystectomy Surgeon Dr. Dean Cline Furnace Feeder Surgeon(s) Dora Araiza PA-C Estimated Blood Loss 10mL Specimens Permanent A. Gallbladder and contents Anesthesia Type General Description of Procedure After informed consent was obtained the patient was taken to the operating room and placed in the supine position. After successful intubation the abdomen was sterilely prepped and draped in usual fashion. A periumbilical incision was made with an 11 blade scalpel and carried down through the soft tissue using electrocautery. The anterior rectus fascia was opened using electrocautery and 2 #0 Vicryl stay sutures were placed. The peritoneum was elevated with hemostats and incised under direct vision using Metzenbaum scissors. A finger sweep was performed and a 12 mm August trocar was placed. The abdomen was insufflated to 18 mmHg. The laparoscope was inserted and the abdomen was examined in 360. No gross abnormalities were identified. A subxiphoid 5 mm port and 2 right upper quadrant 5 mm ports were placed under direct vision. The patient was placed in a reverse Trendelenburg position and slightly airplaned to the left. The gallbladder was grasped and elevated superiorly and laterally. A [place] dissector was used to take down adhesions around the neck of the gallbladder. The cystic duct was identified and skeletonized. It was clipped twice proximally and once distally and transected using a laparoscopic scissor. In similar fashion the cystic artery was identified and skeletonized clipped and divided. The gallbladder was removed from the gallbladder fossa with electrocautery. It was placed into an Endo Catch bag. Thorough irrigation was performed. At the end of the procedure there was adequate hemostasis and no evidence of any bile leaks. A final look around the abdomen showed no other abnormalities. The gallbladder and trochars were all removed and the abdomen was desufflated. The fascia of the camera port was closed using 0 Vicryl in a [id number] fashion. All the wounds were irrigated and closed using 4-0 Monocryl. Marcaine was injected around them for postoperative analgesia and skin glue used as a dressing. The patient was awaken extubated and transferred to recovery in stable condition. My physician's assistant public defender was present throughout the entire case. He helped with prepping the patient. With exposure for trocar placement. He retracted the gallbladder throughout the case. He also assisted with wound closure and dressing placement. I attest to the content of the Intraoperative Record and any orders documented therein. Any exceptions are noted below.
[2017-11-28] MEDS ORDERED: ONDANSETRON INJ 2 MG/ML 2 ML VIAL IV PRN ×2 (14:00→14:15)
[2017-11-28] MEDS ORDERED: SODIUM CHLORIDE 0.9% 1000ML 1,000 ML IV SCH (14:00)
[2017-11-28] MEDS ORDERED: IBUPROFEN 600 MG TAB PO PRN (14:00)
[2017-11-28] MEDS ORDERED: HYDROCODONE/ACETAMIN 5/325MG TAB PO PRN ×2 (14:00)
[2017-11-28] MEDS ORDERED: ATROPINE SULFATE 0.1 MG/ML 5ML SYR IV PRN (14:15)
[2017-11-28] MEDS ORDERED: HYDROmorphone INJ 0.5 MG/0.5 ML SYR IV PRN (14:15)
[2017-11-28] MEDS ORDERED: LABETALOL HCL IV 5 MG/ML 20ML IV PRN (14:15)
[2017-11-28] MEDS ORDERED: EpHEDrine SULFATE INJ 50 MG/ML AMP IV PRN (14:15)
[2017-11-28] MEDS ORDERED: MEPERIDINE HCL 25 MG/ML CARP IV PRN (14:15)
[2017-11-28] MEDS ORDERED: FENTANYL CITRATE INJ 50 MCG/1 ML 2 ML VIAL IV PRN (14:15)
[2017-11-28] MEDS ORDERED: HYDR-5688 PO (14:16)
--- NOTE | 2017-11-28 14:19 | Discharge Instructions ---
Discharge Instructions Date of Service Nov 28, 2017. Admission Reason for Admission: Symptomatic Gallstones Discharge Discharge Diagnosis / Problem: Symptomatic Gallstones Discharge Goals Goal(s): Decrease discomfort, Improve function Activity Recommendations Activity Limitations: as noted below Lifting Limitations: no more than 10 pounds Exercise/Sports Limitations: until after follow-up appointment May Resume Sexual Activity: after follow-up appointment Shower/Bathe: tomorrow Driving or Machine Use: resume 1 day after discharge . Instructions / Follow-Up Instructions / Follow-Up You have surgical glue, Dermabond, over your incisions. You may shower tomorrow , but please do not soak or scrub your incisions. Please follow-up with Dr. Cline in the general surgery clinic in 1-2 weeks. Please call the office at [phone] to schedule an appointment if you do not have one already. Please call the office with any questions or concerns. Current Hospital Diet Patient's current hospital diet: Discharge Diet Recommended Diet: Regular Diet Procedures Procedures Performed: Laparoscopic Cholecystectomy Pending Studies Studies pending at discharge: yes List of pending studies: Path report. Medical Emergencies . Who to Call and When: Medical Emergencies: If at any time you feel your situation is an emergency, please call 911 immediately. . Non-Emergent Contact Non-Emergency issues call your: Primary Care Provider, Surgeon Call Non-Emergent contact if: temperature is above 101.5, your pain is not controlled, wound has increased drainage, wound has increased redness . "Provider Documentation" section prepared by Dora Araiza. .
[2017-11-28 14:45] VITALS: BP 124/74; PULSE 59; TEMP 36.3; O2SAT 93
--- NOTE | 2017-11-28 14:50 | Anesthesiology Progress Note ---
Anesthesia Post Op Note Date & Time Nov 28, 2017 at 14:50 Vital Signs Pain Intensity: 4 Vital Signs Past 12 Hours Date Time Temp Pulse Resp B/P (MAP) Pulse Ox O2 Delivery O2 Flow Rate FiO2 11/28/17 14:36 127/76 11/28/17 14:36 36.4 95 Room Air 11/28/17 14:34 62 16 95 11/28/17 14:34 62 16 11/28/17 14:33 60 16 11/28/17 14:33 59 16 96 11/28/17 14:31 125/75 11/28/17 14:28 65 14 11/28/17 14:28 66 14 97 11/28/17 14:26 121/70 11/28/17 14:23 57 19 11/28/17 14:23 59 19 100 11/28/17 14:22 59 16 11/28/17 14:22 59 16 100 11/28/17 14:21 136/85 11/28/17 14:17 56 16 100 11/28/17 14:17 56 16 11/28/17 14:16 59 15 142/84 100 11/28/17 14:16 59 15 11/28/17 14:11 64 21 11/28/17 14:11 64 21 138/81 100 11/28/17 14:06 72 13 11/28/17 14:06 72 13 137/83 100 11/28/17 14:01 86 14 11/28/17 14:01 36.7 90 16 144/88 100 Oxymask 10 11/28/17 14:01 90 14 144/88 100 11/28/17 12:07 36.8 62 18 141/88 (105) 96 Room Air Notes Mental Status: alert / awake / arousable, participated in evaluation Pt Amnestic to Procedure: Yes Nausea / Vomiting: adequately controlled Pain: adequately controlled Airway Patency, RR, SpO2: stable & adequate BP & HR: stable & adequate Hydration State: stable & adequate Anesthetic Complications: no major complications apparent
[2017-11-28 15:15] VITALS: BP 127/74; PULSE 60; O2SAT 95
[2017-11-28 15:45] VITALS: BP 144/89; PULSE 60; TEMP 36.5; O2SAT 94
== END 2017-11-28 16:08 | disposition home or self-care (01) ==
LOC: C.ACU 11:35
PROVIDERS: ATTEND Surgery
DX: K80.10 Calculus of gallbladder with chronic cholecystitis without obstruction (principal); E66.9 Obesity, unspecified; Z68.32 Body mass index [BMI] 32.0-32.9, adult; Z90.89 Acquired absence of other organs; Z98.890 Other specified postprocedural states; Z83.3 Family history of diabetes mellitus; Z82.49 Family history of ischemic heart disease and other diseases of the circulatory system; Z80.9 Family history of malignant neoplasm, unspecified

== ENCOUNTER 2018-04-12 03:51 | Emergency (ER) | payer OTHER ==
[~2018-04-12] VITALS: Ht 162.6 cm; Wt 83.5 kg
[~2018-04-12 03:51] MED LIST changes: -CEFAZOLIN 2000MG IV PUSH 15 ML IV SCH; -LACTATED RINGER'S 1000ML 1,000 ML IV SCH
[2018-04-12 03:57] VITALS: TEMP 36.9; Ht 162.6 cm; Wt 83.5 kg
[2018-04-12] MEDS ORDERED: KETOROLAC TROMETHAMINE 30 MG/ML VIAL IV STA (04:21)
[2018-04-12 04:55] LABS: BASO % 0.7 %; BASO ABS # 0.05 K/uL (0-0.2); EOS % 7.9 %; EOS ABS # 0.53 K/uL (0-0.5); HEMATOCRIT 38.6 % (37-47); HEMOGLOBIN 13.2 g/dL (12.0-16.0); LYMPH % 45.1 %; LYMPH ABS # 3.02 K/uL (1.2-3.4); MEAN CELL VOLUME 91.7 fL (80-100); MEAN CORPUSCULAR HEMOGLOBIN 31.4 pg (25-34); MEAN CORPUSCULAR HGB CONC 34.2 g/dl (32-36); MONO % 7.2 %; MONO ABS # 0.48 K/uL (0.11-0.59); NEUT % 39.1 %; NEUT ABS # 2.61 K/uL (1.4-6.5); PLATELET COUNT 256 K/uL (130-400); RED CELL DISTRIBUTION WIDTH CV 13.5 % (11.5-14.5); WHITE BLOOD COUNT 6.69 K/uL (4.8-10.8)
[2018-04-12] MEDS ORDERED: ACETTAB15 PO (05:01)
[2018-04-12 05:20] LABS: ALBUMIN 3.9 gm/dl (3.4-5.0); CALCIUM 8.6 mg/dl (8.5-10.1); CREATININE 0.92 mg/dl (0.60-1.20); POTASSIUM 3.2 mmol/L (3.5-5.1); TOTAL PROTEIN 7.5 gm/dl (6.4-8.2)
--- NOTE | 2018-04-12 05:51 | EMERGENCY ROOM VISIT NOTE ---
History First contact with patient: 04:05 Chief Complaint: SHOULDER PAIN Stated Complaint: SEVERE PAIN IN SHOULDER, NECK AND LEFT ARM History of Present Illness The patient is a 42 year old female who presents to the Emergency Room with complaints of severe left shoulder pain for the past few months it got much worse over the past 2 days. She describes pain as severe, 8 out of 10. Movement makes it worse nothing makes it better. Patient does smoke. Patient denies chest pain, dyspnea, fever, chills, cough, abdominal pain, back pain, congestion, diaphoresis, nausea, vomiting, injury to the area. She is right- handed. Review of Systems An 10 system review of systems was completed with positives and pertinent negatives listed in the HPI. Past Medical/Surgical History Medical Problems: (1) Bronchitis Surgical Problems: (1) History of back surgery Family History Diabetes mellitus FH: cancer Kidney disease Kidney stones Social History Smoking Status: Current Every Day Smoker Alcohol Use: occasionally Drug Use: none Housing Status: lives with family Occupation Status: employed Current/Historical Medications Scheduled Acetaminophen (Tylenol), 650 MG PO DIRECTED Ibuprofen (Advil), 600 MG PO DIRECTED Scheduled PRN Acetaminophen-Caffeine (Excedrin Tension Headache), 2 TABS PO DAILY PRN for Headache Physical Exam Vital Signs Date Time Temp Pulse Resp B/P (MAP) Pulse Ox O2 Delivery O2 Flow Rate FiO2 04/12/18 03:57 36.9 72 20 140/93 96 Room Air Physical Exam VITALS: Vitals are noted on the nurse's note and reviewed by myself. Vital signs reviewed. GENERAL: White male tobacco odor, in no acute distress, nondiaphoretic, well- developed well-nourished. SKIN: The skin was without rashes, erythema, edema, or bruising. There is no tenting of the skin. Capillary reflex less than 2 seconds. HEAD: Normocephalic atraumatic. EARS: External auditory canals clear, tympanic membranes pearly isaac without erythema or effusion bilaterally. EYES: Pupils equal round and reactive to light and accommodation. Conjunctivae without injection, sclerae without icterus. Extraocular movements intact. NOSE: Patent, turbinates without inflammation or discharge. MOUTH: Mucous membranes moist. Pharynx without erythema or exudate. Uvula midline. Airway patent. Tongue does not deviate. NECK: Supple without nuchal rigidity. No lymphadenopathy. No thyromegaly. Cervical spine is nontender. No JVD. HEART: Regular rate and rhythm without murmurs gallops or rubs. LUNGS: Clear to auscultation bilaterally without wheezes, rales or rhonchi. No retractions or accessory muscle use. ABDOMEN: Positive bowel sounds x 4. Normal tympanic percussion. Soft, nontender, without masses or organomegaly. Dias sign negative. No guarding or rebound tenderness. No CVA tenderness MUSCULOSKELETAL: No muscle atrophy, erythema, or edema noted. Left shoulder diffusely tender to palpation with increased pain with range of motion. No deformity noted. 5 out of 5 strength to bilateral upper extremities. NEURO: Patient was alert and oriented to person place and time. Normal sensation to light and sharp touch. No focal neurological deficits. Medical Decision & Procedures Laboratory Results 04/12/18 04:45 Red Blood Count 4.21, Mean Corpuscular Volume 91.7, Mean Corpuscular Hemoglobin 31.4, Mean Corpuscular Hemoglobin Concent 34.2, Mean Platelet Volume 11.0, Neutrophils (%) (Auto) 39.1, Lymphocytes (%) (Auto) 45.1, Monocytes (%) (Auto) 7.2, Eosinophils (%) (Auto) 7.9, Basophils (%) (Auto) 0.7, Neutrophils # (Auto) 2.61, Lymphocytes # (Auto) 3.02, Monocytes # (Auto) 0.48, Eosinophils # (Auto) 0.53, Basophils # (Auto) 0.05 04/12/18 04:45 Test 04/12/18 04:45 04/12/18 04:47 White Blood Count 6.69 K/uL (4.8-10.8) Red Blood Count 4.21 M/uL (4.2-5.4) Hemoglobin 13.2 g/dL (12.0-16.0) Hematocrit 38.6 % (37-47) Mean Corpuscular Volume 91.7 fL (80-100) Mean Corpuscular Hemoglobin 31.4 pg (25-34) Mean Corpuscular Hemoglobin Concent 34.2 g/dl (32-36) Platelet Count 256 K/uL (130-400) Mean Platelet Volume 11.0 fL (7.4-10.4) Neutrophils (%) (Auto) 39.1 % Lymphocytes (%) (Auto) 45.1 % Monocytes (%) (Auto) 7.2 % Eosinophils (%) (Auto) 7.9 % Basophils (%) (Auto) 0.7 % Neutrophils # (Auto) 2.61 K/uL (1.4-6.5) Lymphocytes # (Auto) 3.02 K/uL (1.2-3.4) Monocytes # (Auto) 0.48 K/uL (0.11-0.59) Eosinophils # (Auto) 0.53 K/uL (0-0.5) Basophils # (Auto) 0.05 K/uL (0-0.2) RDW Standard Deviation 45.0 fL (36.4-46.3) RDW Coefficient of Variation 13.5 % (11.5-14.5) Immature Granulocyte % (Auto) 0.0 % Immature Granulocyte # (Auto) 0.00 K/uL (0.00-0.02) Anion Gap 9.0 mmol/L (3-11) Est Creatinine Clear Calc Drug Dose 81.6 ml/min Estimated GFR () 87.8 Estimated GFR (Non- 75.7 BUN/Creatinine Ratio 14.8 (10-20) Calcium Level 8.6 mg/dl (8.5-10.1) Total Bilirubin 0.4 mg/dl (0.2-1) Direct Bilirubin 0.1 mg/dl (0-0.2) Aspartate Amino Transf (AST/SGOT) 12 U/L (15-37) Alanine Aminotransferase (ALT/SGPT) 23 U/L (12-78) Alkaline Phosphatase 83 U/L (45-117) Total Protein 7.5 gm/dl (6.4-8.2) Albumin 3.9 gm/dl (3.4-5.0) Lipase 76 U/L (73-393) Human Chorionic Gonadotropin, Qual NEG (NEG) Bedside D-Dimer 315 ng/mlFEU (0-450) Bedside Troponin I < 0.030 ng/ml (0-0.045) Medications Administered Medications (Trade) Dose Ordered Sig/Selina Route Start Time Stop Time Status Last Admin Dose Admin Ketorolac Tromethamine (Toradol Inj) 10 mg NOW STAT IV 04/12/18 04:21 04/12/18 04:23 DC 04/12/18 04:48 10 MG ED Course Prior records/ancillary studies reviewed. Triage Nursing notes reviewed. The patient's history was concerning for left shoulder pain. Differential diagnosis: Etiologies such as musculoskeletal, disc herniation, fracture, cardiac, tendinitis, pulmonary, as well as others were entertained. Physical findings: As above. No focal neurologic findings noted. ER treatment provided: Toradol On reassessment the patient felt better. Diagnostics interpreted by me: EKG: Normal sinus, normal intervals, normal axis, no acute ST-T wave changes. Rate 58. Impression sinus bradycardia interpreted by myself I think arrhythmia is unlikely. EKG shows normal sinus rhythm with no interval abnormalities such as QT prolongation or WPW. There are no findings to suggest Brugada syndrome. Cardiac monitoring in the emergency department reveals no tachycardic or bradycardic dysrhythmia. Hypertrophic cardiomyopathy was considered but there are no clear historical elements pointing toward this. EKG is not suggestive. The QRS voltage is not extremely large and there are no suggestive Q waves. The labs revealed negative troponin. Negative d-dimer Imaging studies: Shoulder x-ray with no fracture or effusion or dislocation per my interpretation Chest x-ray with no acute consolidation, pneumothorax or free of my interpretation HEART SCORE: Hx: high/mod/low suspicion: 0 ECG: ST depression/nonspecific changes/normal: 0 Age: Greater than 65/45-64/less than 45: 0 Risk factors: (Hypertension, hyperlipidemia, diabetes, coronary disease, tobacco use, cocaine use): 1 Troponin: Greater than 2 times normal limits/1-2 times normal limits/normal: 0 Total: 1 This appears to be consistent with left shoulder pain most likely muscle skeletal in nature as symptoms have been going on for a few months now. Patient was neurovascularly and neurologically intact. She is advised to follow -up with orthopedic doctor in a few days here in the ER sooner for severe pain, numbness, tingling, worsening signs or symptoms or as needed. The patient's physical examination and detailed history did not reveal any red flags for shoulder pain such as those listed in the differential diagnosis. Therefore advanced diagnostics and consultations were felt to be unwarranted. By the evaluation outlined above emergent etiologies such as fracture, aortic disease, metastatic disease, infection, cardiac, as well as others were deemed relatively unlikely. The pt informed about the findings as listed above. All questions were answered and pleased with the treatment. Return instructions were outlined and the patient was discharged in stable condition. Referral: The patient was referred back to orthopedic doctor and primary care physician for follow-up in 2 to 3 days for a recheck of the current condition. Case reviewed with my attending The chart was completed utilizing [employer] Speech voice recognition software. Grammatical errors, random word insertions, pronoun errors, and incomplete sentences are an occassional consequence of this system due to software limitations, ambient noise, and hardware issues. Any formal questions or concerns about the content, text, or information contained within the body of this dictation should be directly addressed to the physician payroll administrative assistant for clarification. Medical Decision As above [place] Drug Monitoring Program Search Results: patient reviewed within database, no issues identified Medication Reconcilliation Current Medication List: was personally reviewed by me Blood Pressure Screening Patient's blood pressure: Normal blood pressure Impression Primary Impression: Shoulder pain Additional Impression: Hypokalemia Departure Information Dispostion Home / Self-Care Condition GOOD Referrals Perla MUNOZ M.D. (PCP) Patient Instructions My [facility] Additional Instructions Ibuprofen(Motrin, Advil) may be used for fever or pain. Use 600mg every six hours as needed. Take with food. Avoid using more than 2400mg in a 24 hour period. Do not use 2400mg per day for more than three consecutive days without physician direction. Prolonged inappropriate use can lead to stomach upset or ulcers. This medication can be taken if you need to drive, work, or perform activities which may be dangerous when taking narcotic pain medication. (AND/OR) Acetaminophen(Tylenol) may be used for fever or pain. Use 1000mg every six hours as needed. Avoid using more than 3000mg in a 24 hour period. This medication can be taken if you need to drive, work, or perform activities which may be dangerous when taking narcotic pain medication. Continue current medications. Return to the ER immediately for any numbness, tingling, severe pain, extreme swelling in the extremity or as needed. Call your Orthopedics tomorrow to arrange follow up for your shoulder problem. Problem Qualifiers Primary Impression: Shoulder pain Chronicity: chronic Laterality: left Qualified Codes: M25.512 - Pain in left shoulder; G89.29 - Other chronic pain
[2018-04-12 05:55] VITALS: BP 142/93; PULSE 50; O2SAT 98
--- NOTE | 2018-04-12 07:29 | DIAGNOSTIC IMAGING REPORT ---
CHEST ONE VIEW PORTABLE CLINICAL HISTORY: 42 years-old Female presenting with CHEST PAIN. TECHNIQUE: Portable upright AP view of the chest was obtained. COMPARISON: 04/09/2016. FINDINGS: Cardiomediastinal silhouette normal. No focal opacity. No large effusion or pneumothorax. Osseous structures normal. Upper abdomen normal. IMPRESSION: 1. No acute cardiopulmonary disease. Electronically signed by: Kody Vega M.D. 04/12/2018 7:28 AM Dictated Date/Time: 04/12/2018 7:27 AM
--- NOTE | 2018-04-12 08:10 | DIAGNOSTIC IMAGING REPORT ---
L SHOULDER MIN 2 VIEWS ROUTINE CLINICAL HISTORY: 42 years-old Female presenting with pain. TECHNIQUE: Internal rotation, external rotation, Grashey views of the left shoulder were obtained. COMPARISON: Chest x-ray from 04/09/2016. FINDINGS: Glenohumeral and acromioclavicular joints congruent. No subluxation or deformity of the humeral head. No acute fracture or malalignment. No advanced degenerative change. No radiographic soft tissue abnormality. IMPRESSION: No acute osseous injury. Electronically signed by: Kody Vega M.D. 04/12/2018 8:09 AM Dictated Date/Time: 04/12/2018 8:08 AM
== END 2018-04-12 06:00 | disposition home or self-care (01) ==
LOC: C.EDB 03:53 → C.EDA 06:00
DX: M25.512 Pain in left shoulder (principal); G89.29 Other chronic pain; E87.6 Hypokalemia; F17.200 Nicotine dependence, unspecified, uncomplicated